=== PATIENT | male | born 1945 | race Caucasian/White ===

== ENCOUNTER → 2018-08-16 08:10 | Outpatient (CLI) | payer MEDICARE, SELFPAY ==
[2018-08-16 13:34] LABS: Anion Gap 12.5 mEq/L (5-15); Blood Urea Nitrogen 18 mg/dL (7-18); Calcium 8.7 mg/dL (8.5-10.1); Carbon Dioxide 28 mmol/L (21.0-32.0); Chloride 104 mmol/L (98-107); Creatinine,Serum 1.12 mg/dL (0.70-1.30); Estimated Glomerular Filt Rate 65 ml/min (>60); GFR (African American) 78 ML/MIN (>60); Glucose 98 mg/dL (74-106); Potassium 4.5 mmoL/L (3.5-5.1); Sodium 140 mmol/L (136-145)
== END ==
PROVIDERS: PCP Nurse Practitioner Family; Visit Provider Nurse Practitioner Family
DX: E87.5 Hyperkalemia (principal)
CPT/HCPCS: 36415; 80048

== ENCOUNTER → 2019-12-03 07:58 | Outpatient (CLI) | payer MEDICARE, OTHER, SELFPAY ==
[2019-12-03 14:20] LABS: Alanine Aminotransferase 21 U/L (12-78); Albumin Level 4.1 g/dl (3.5-5.0); Albumin/Globulin Ratio 1.4 (1.1-1.8); Alkaline Phosphatase 77 U/L (38-126); Anion Gap 7.5 mEq/L (5-15); Aspartate Amino Transferase 31 U/L (17-59); Bilirubin,Total 0.5 mg/dl (0.2-1.3); Blood Urea Nitrogen 18 mg/dl (9-20); Calcium 9.5 mg/dl (8.4-10.2); Carbon Dioxide 31 mmol/L (22.0-30.0); Chloride 104 mmol/L (98-107); Chol/HDL Ratio 2.1 (1-3.5); Cholesterol 133 mg/dl (140-200); Estimated Glomerular Filt Rate 73 ml/min (>60); GFR (African American) 89 ML/MIN (>60); Glucose 96 mg/dl (74-100); HDL Cholesterol 64 mg/dl (40-60); Potassium 4.5 mmoL/L (3.5-5.1); Sodium 138 mmol/L (136-145); Total Protein,Serum 7.1 g/dl (6.3-8.2); Triglycerides 74 mg/dl (30-150); VLDL Cholesterol 15 mg/dL (0-40)
[2019-12-03 14:30] LABS: Direct LDL Cholesterol 67.24 mg/dL (100-129)
[2019-12-03 14:50] LABS: Prostate Specific Ag Screen 4.5 ng/ml (0.0-4.0)
== END ==
PROVIDERS: Visit Provider Nurse Practitioner Family
DX: Z00.00 Encounter for general adult medical examination without abnormal findings (principal); E78.2 Mixed hyperlipidemia; I10 Essential (primary) hypertension; N40.1 Benign prostatic hyperplasia with lower urinary tract symptoms; Z12.5 Encounter for screening for malignant neoplasm of prostate
CPT/HCPCS: 36415; 80053; 80061; G0103

== ENCOUNTER → 2020-01-17 10:02 | Outpatient (CLI) | payer MEDICARE, OTHER, SELFPAY ==
--- NOTE | 2020-01-17 10:09 | CA_ITS ---
APPROVED REPORT Right Upper Extremity Venous Study for DVT.. Distribution Operation Supervisor: DEANDRE SahniT Indications Upper Extremity Pain: Right Upper Extremity Edema: Right Pain rt elbow area x 1 week,nki Vein Imaging IJV (R): Normal phasic flow is seen. Normal flow, augmentation and compression is seen. No evidence of Deep Vein Thrombosis. No abnormalities are demonstrated. SCV (R): Normal phasic flow is seen. Normal flow, augmentation and compression is seen. No evidence of Deep Vein Thrombosis. No abnormalities are demonstrated. Axillary (R): Normal phasic flow is seen. Normal flow, augmentation and compression is seen. No evidence of Deep Vein Thrombosis. No abnormalities are demonstrated. Brachial (R): Normal phasic flow is seen. Normal flow, augmentation and compression is seen. No evidence of Deep Vein Thrombosis. No abnormalities are demonstrated. Basilic (R): Compressible Cephalic (R): Compressible Radial (R): Compressible Ulnar (R): Compressible Conclusion Study suggests no evidence of DVT of the right upper extremity. Study suggests no evidence of SVT of the right upper extremity. Critical Notification Physician Notified Date: 01/17/2020 Time: 10:40 Physician Name: Tyrel Electronically signed by : Vj Leong MD 01/17/2020 16:44:21
== END ==
PROVIDERS: PCP Nurse Practitioner Family; Visit Provider Nurse Practitioner Family
DX: M79.601 Pain in right arm (principal); M79.89 Other specified soft tissue disorders
CPT/HCPCS: 93971

== ENCOUNTER → 2020-10-19 07:27 | Outpatient (CLI) | payer MEDICARE, OTHER, SELFPAY ==
[2020-10-19 14:31] LABS: Prostate Specific Ag, Diagnost 3.14 ng/ml (0.0-4.0)
[2020-10-19 15:35] LABS: Alanine Aminotransferase 19 U/L (12-78); Albumin Level 3.8 g/dl (3.5-5.0); Albumin/Globulin Ratio 1.2 (1.1-1.8); Alkaline Phosphatase 85 U/L (38-126); Anion Gap 9.8 mEq/L (5-15); Aspartate Amino Transferase 28 U/L (17-59); Bilirubin,Total 0.4 mg/dl (0.2-1.3); Blood Urea Nitrogen 24 mg/dl (9-20); Calcium 9.2 mg/dl (8.4-10.2); Carbon Dioxide 27 mmol/L (22.0-30.0); Chloride 107 mmol/L (98-107); Chol/HDL Ratio 2.6 (1-3.5); Cholesterol 145 mg/dl (140-200); Estimated Glomerular Filt Rate 65 ml/min (>60); GFR (African American) 79 ML/MIN (>60); Globulin 3.1 g/dL (1.3-3.2); Glucose 105 mg/dl (74-100); HDL Cholesterol 55 mg/dl (40-60); Potassium 4.8 mmoL/L (3.5-5.1); Sodium 139 mmol/L (136-145); Total Protein,Serum 6.9 g/dl (6.3-8.2); Triglycerides 52 mg/dl (30-150); VLDL Cholesterol 10 mg/dL (0-40)
[2020-10-19 15:46] LABS: Direct LDL Cholesterol 69.83 mg/dL (100-129)
== END ==
PROVIDERS: Visit Provider Nurse Practitioner Family
DX: Z00.00 Encounter for general adult medical examination without abnormal findings (principal); E78.2 Mixed hyperlipidemia; N40.1 Benign prostatic hyperplasia with lower urinary tract symptoms
CPT/HCPCS: 36415; 80053; 80061; 84153

== ENCOUNTER → 2021-06-25 18:25 | Outpatient (CLI) | payer MEDICARE, OTHER, SELFPAY ==
[2021-06-25 20:09] LABS: Alanine Aminotransferase 22 U/L (12-78); Albumin Level 3.8 g/dl (3.5-5.0); Albumin/Globulin Ratio 1.3 (1.1-1.8); Alkaline Phosphatase 74 U/L (38-126); Anion Gap 6.5 mEq/L (5-15); Aspartate Amino Transferase 31 U/L (17-59); Bilirubin,Total 0.6 mg/dl (0.2-1.3); Blood Urea Nitrogen 16 mg/dl (9-20); Carbon Dioxide 31 mmol/L (22.0-30.0); Chloride 106 mmol/L (98-107); Cholesterol 138 mg/dl (140-200); Estimated Glomerular Filt Rate 82 ml/min (>60); GFR (African American) 100 ML/MIN (>60); Globulin 2.9 g/dL (1.3-3.2); Glucose 94 mg/dl (74-100); Potassium 4.5 mmoL/L (3.5-5.1); Sodium 139 mmol/L (136-145); Total Protein,Serum 6.7 g/dl (6.3-8.2); Triglycerides 46 mg/dl (30-150); VLDL Cholesterol 9 mg/dL (0-40)
[2021-06-25 20:20] LABS: Direct LDL Cholesterol 70.26 mg/dL (100-129)
[2021-06-25 20:42] LABS: Prostate Specific Ag Screen 3.7 ng/ml (0.0-4.0)
[2021-06-25 22:42] LABS: Chol/HDL Ratio 2.6 (1-3.5); HDL Cholesterol 53 mg/dl (40-60)
== END ==
PROVIDERS: Visit Provider Nurse Practitioner Family
DX: Z00.00 Encounter for general adult medical examination without abnormal findings (principal); I10 Essential (primary) hypertension; E78.2 Mixed hyperlipidemia; N40.1 Benign prostatic hyperplasia with lower urinary tract symptoms; Z12.5 Encounter for screening for malignant neoplasm of prostate
CPT/HCPCS: 80053; 80061; G0103

== ENCOUNTER → 2022-12-08 15:15 | Outpatient (CLI) | payer MEDICARE, SELFPAY ==
--- NOTE | 2022-12-08 15:19 | CT_ITS ---
FINAL REPORT TECHNIQUE: Axial CT images of the chest were obtained without contrast. Low-dose protocol was utilized. This study was performed with techniques to keep radiation doses as low as reasonably achievable (ALARA). Individualized dose reduction techniques using automated exposure control or adjustment of mA and/or kV according to the patient's size were employed. CLINICAL HISTORY: FORMER SMOKER, QUIT 16 YRS AGO, SMOKED 1 PK PER DAY X 40 YRS COMPARISON: none FINDINGS: CT CHEST WITHOUT, LOW DOSE SCREENING CT Di Vol: mGy DLP: mGy*cm There is no axillary, mediastinal, or hilar adenopathy. The heart size is normal. There are moderate to severe coronary artery calcifications. There is no pleural or pericardial effusion. The lung windows show a 4 mm nodule of the right major fissure on image 52. There is severe emphysema and mild scarring. Limited images of the upper abdomen demonstrate left adrenal nodule, likely adenoma. IMPRESSION: 4 mm right major fissure nodule. LR Category 2: 12 month follow-up low-dose chest CT is recommended. Reviewed, Interpreted and Dictated by Thang Simmons III, MD Transcribed by Mónica Noel Authenticated and . [facility]
== END ==
PROVIDERS: PCP Internal Medicine Adolescent Medicine; Visit Provider Nurse Practitioner Family
DX: Z87.891 Personal history of nicotine dependence (principal); Z12.2 Encounter for screening for malignant neoplasm of respiratory organs
CPT/HCPCS: 71271

== ENCOUNTER 2023-08-01 08:15 | Day surgery (SDC) | payer MEDICARE, SELFPAY ==
[2023-08-01 08:37] VITALS: BP 147/67; PULSE 94; RESP 18; TEMP 36.2; O2SAT 97; BMI 20.5
--- NOTE | 2023-08-01 08:43 | HMH.SCOPE ---
Procedure: Date: 08/01/23 Patient Date of :: 1945 Procedure Performed:: Colonoscopy with polypectomy Indications:: History of colon polyps Note: Colonoscopy in September 2019 was somewhat complicated by fairly severe spasticity/poor relaxation. An enlarged prostate was noted. Adenomatous polyps of the transverse colon and at 40 cm were excised. Performing Provider:: Brandon Landry MD Referring Provider:: . Sedation:: Monitored anesthesia care Procedure:: After informed consent was obtained the patient was taken to the endoscopy suite. Sedation ensued after the patient was transferred to the left lateral decubitus position. Pulse, blood pressure, and oxygen saturation were monitored throughout the procedure. Digital rectal exam revealed no significant abnormality. The colonoscope was placed in position. The entire colon was evaluated. The colonoscope was carefully removed and the patient was transferred to recovery in stable condition. Please see findings and specimens below for detail. Findings:: Bowel preparation moderate to poor Enlarged prostate with known isolated mass lesion (unchanged) Posterior hemorrhoidal tag Fairly profound spasticity/lack of relaxation Right colon tattoo region appeared normal Polyps (see specimens) Specimens:: Cecal polyp (cold biopsy forceps) Polyp at 20 cm (cold snare) Recommendations:: Timing of repeat colonoscopy is pending pathology will likely be around 2-3 years secondary to history of significant polyps and spasticity/lack of relaxation. Consider barium enema secondary to profound spasticity/lack of relaxation. Complications:: No immediate Estimated blood obtained (mL): 1 Comment:: The patient states that he has a chronic history of benign prostatic hypertrophy and continues evaluation by his primary care provider. Colonoscopy Component Colonoscopy Component Was a colonoscopy performed during today's procedure?: Yes Recommended follow up colonoscopy of at least 10 years?: No If no, follow up colonoscopy recommended in ___ years?: (See above) Reason for not recommending >/= 10 yr follow-up interval?: (See above)
--- NOTE | 2023-08-01 08:49 | EXP.ANES.CKL ---
[facility] Disclaimer: The information contained in this section may have been updated after the patient was seen, as this information can be updated by other users. Medical History BPH (benign prostatic hyperplasia) Colon cancer COPD (chronic obstructive pulmonary disease) Hyperlipidemia Surgical History History of bowel resection Hx of inguinal hernia repair Family History Other No significant family history Social History Smoking Status: Never smoker alcohol intake: never substance use type: denies use current occupational status: retired Travel in the last 8 weeks: None household members: none housing: house caffeine: No [facility] Anesthesia Checklist Patient Identification Patient Identification: Arm Band Structural Data Admitted From: Home Planned Operative Procedure/s: colonoscopy Consent for Planned Operative Procedure(s) Verified: Yes Verified Documents: Surgical Consent and History and Physical NPO Status Verified Time NPO: 00:00 Additional verifications Anesthesia Reactions: No Airway Assessment Mallampati Score:: Class II TMJ Mobility Assessed: Yes Dentition: Good Dentition (upper dentures removed) Neurological Assessment Level of Consciousness: Awake and Alert Anesthesia Plan Anesthesia Risk discussed: Yes Anesthesia Plan: Verified ASA Class: II Anesthesia Type: MAC
[2023-08-01 08:53] VITALS: O2SAT 97
[2023-08-01 09:22] VITALS: BP 93/50; PULSE 71; RESP 14; TEMP 36.3; O2SAT 96
[2023-08-01 09:32] VITALS: BP 89/51; PULSE 66; RESP 14; O2SAT 97
[2023-08-01 09:42] VITALS: BP 94/51; PULSE 63; RESP 16; O2SAT 97
[2023-08-01 09:52] VITALS: BP 116/58; PULSE 79; RESP 16; TEMP 36.6; O2SAT 98
== END 2023-08-01 09:52 | disposition home or self-care (01) ==
PROVIDERS: PCP Internal Medicine Adolescent Medicine; Visit Provider Surgery
PROC: 0DJD8ZZ Inspection of Lower Intestinal Tract, Via Natural or Artificial Opening Endoscopic (ICD-10-PCS; CPT 45380; principal; 2023-08-01 09:30)
DX: Z12.11 Encounter for screening for malignant neoplasm of colon (principal); Z86.010 Personal history of colon polyps; N40.0 Benign prostatic hyperplasia without lower urinary tract symptoms; D12.0 Benign neoplasm of cecum; D12.5 Benign neoplasm of sigmoid colon
CPT/HCPCS: 45380; 45385; 88305

== ENCOUNTER 2023-11-13 07:40 | Outpatient (CLI) | payer MEDICARE, SELFPAY ==
--- NOTE | 2023-11-13 07:41 | FL_ITS ---
FINAL REPORT CLINICAL HISTORY: colon spasm - unsuccessful colonoscopy FINDINGS: BARIUM ENEMA HISTORY: Incomplete colonoscopy. Spasm of the colon. PROCEDURE: Single-contrast barium was introduced by gravity drip. Spot and overhead films were obtained. Number of images: 29 Fluoro time: 3 minutes 11 seconds Radiation exposure in Reference air Kerma: 131.36 mGy. FINDINGS: Supervisor Production Department film is unremarkable. Retained stool limits mucosal detail. The colon is markedly redundant. Contrast is seen to level of the cecum. The cecum is poorly visualized secondary to air lock. Taking this into consideration, no obstructing lesion is identified. Minimal diverticular changes are seen in the transverse colon. The patient has an incompetent ileocecal valve. IMPRESSION: Redundant colon. Minimal diverticular changes. Films reviewed , interpreted and dictated by Dr. Simmons. Transcribed by Marciano Roe PA-C. Reviewed, Interpreted and Dictated by Thang Simmons III, MD Transcribed by TC Mata Authenticated and [facility]
[2023-11-13] MEDS: BARIUM SULFATE(E-Z-AC);1900ML BOTTLE 3800 ML PO (08:51)
== END 2023-11-13 23:59 ==
LOC: RAD 07:41
PROVIDERS: PCP Internal Medicine Adolescent Medicine; Visit Provider Surgery
DX: N40.0 Benign prostatic hyperplasia without lower urinary tract symptoms (principal)
CPT/HCPCS: 74270

== ENCOUNTER 2023-12-12 07:08 | Outpatient (CLI) | payer MEDICARE, SELFPAY ==
--- NOTE | 2023-12-12 07:13 | CT_ITS ---
FINAL REPORT TECHNIQUE: Axial images were obtained from the lung apex to the mid abdomen by computed tomography. This study was performed with techniques to keep radiation doses as low as reasonably achievable (ALARA). Individualized dose reduction techniques using automated exposure control or adjustment of mA and/or kV according to the patient's size were employed. CLINICAL HISTORY: H/O TOBACCO USE former smoker. quit 17 years ago. smoked 1 ppd x 35 years. COMPARISON: 12/08/2022 FINDINGS: CHEST CT LOW DOSE CTDI vol (mGy): 2.90 DLP (mGy-cm): 111.64 There is no axillary adenopathy. There is no hilar or mediastinal adenopathy. The heart is normal in size. There is no pericardial or pleural effusion. Worsening there is a stable 4 mm nodule along the lateral major fissure well seen on image 50 of series 4. There are few scattered 2 mm or less nodules in the periphery of the right upper lobe best seen on MIP imaging, stable. There are few 3 mm or less nodules in the periphery of the left upper lobe, stable best seen on MIP imaging. Limited images of the upper abdomen are unremarkable. IMPRESSION: Stable pulmonary nodules as above. Lung RADS category 2. Recommend 12 month follow-up low-dose chest CT. Reviewed, Interpreted and Dictated by Ronit Maxwell MD Transcribed by Pina Kwon Authenticated and [facility]
== END 2023-12-12 23:59 | disposition home or self-care (01) ==
LOC: RAD 07:09
PROVIDERS: PCP Internal Medicine Adolescent Medicine; Visit Provider Nurse Practitioner Family
DX: Z87.891 Personal history of nicotine dependence (principal); Z12.2 Encounter for screening for malignant neoplasm of respiratory organs
CPT/HCPCS: 71271

== ENCOUNTER 2025-02-26 09:30 | Outpatient (CLI) | payer MEDICARE, SELFPAY ==
--- OUTSIDE RECORDS SUMMARY | 2024-11-16 17:30 | XMS_ITS ---
Author Organization [facility] Address [address] [facility] [address] [place], [place] [address] Care Team Providers Care Copyright Manager Name Role Phone Yue Sy Primary Care Provider YUE Sy APRN Unavailable Unavailable Migration, Provider Unavailable Unavailable REASON FOR VISIT [facility] Encounter Medications Medication SIG (Take, Route, [...] review and pick correct strength[facility]ulatio n from [facility]. If intended option is not shown, discontinue and re-order from Quick Search* Active Allergy Relief (Cetirizine) 10 MG 1 tab(s) orally once a day; Duration: 90 days Active Flomax 0.4 MG 2 CAP(S) ORALLY ONCE A DAY AT BEDTIME; Duration: 90 DAYS *Please review and pick correct strength-formulatio n from Medispan options. If intended option is not shown, discontinue and re-order from Quick Search* Active Encounters Encounter Location Date Provider Diagnosis [facility] [address] [place], [place] [address] 11/16/2024 Provider Migration Plan Of Treatment No Information Progress Notes * Adam HANNA HDOB: 7 (79 yo M)Acc No.[id number]:11/16/2024 Patient: Adam GLEZ Provider: Ladi Chen :1945 A ge:79 Y S ex:Male Date:11/16/2024 Address:[address] [place], [place] [address], [id number] Pcp:Yue Sy Subjective: * Chief Complaints: * [...] Electronic signature of Prov ider Migration on 02/27/2025 at 10:07 AM EDT Sign off status: Pending * Provider: Ladi allen Migration Date: 11/16/2024 Generated for Lukas agarwal/Roddy/Gordonsmmindy on: 02/27/2025 10:07 AM EDT
--- OUTSIDE RECORDS SUMMARY | 2024-11-22 06:00 | XMS_ITS ---
Author Organization [facility] Address [address] [place] [address] Care Team Providers Care Snailer Name Role Phone Yue Sy Primary Care Provider YUE Sy APRN Unavailable Unavailable REASON FOR VISIT 6 month f/u Encounters Encounter Location Date Provider Diagnosis [place] [address] 11/22/2024 Yue Sy Plan Of Treatment No Information Progress Notes * Adam HANNA HDOB: 7 (79 yo M)Acc No.[id number]:11/22/2024 Progress Notes Patient: Adam GLEZ Provider: Barbara Sy APRN :1945 A ge:79 Y S ex:Male Date:11/22/2024 Address:[facility] [address] [id number] Subjective: * Chief Complaints: * 1 . 6 month f/u. * Medical History: Objective: * Vitals: Assessment: Plan: * Treatment: * * Electronic signature of Joseluis Sy APRN on 02/27/2025 at 10:07 AM EDT Sign off status: Pending * Provider: Barbara Sy APRN Date: 11/22/2024 Generated for Printi ng/Faxing/eTransmitting on: 02/27/2025 10:07 AM EDT
--- OUTSIDE RECORDS SUMMARY | 2025-02-27 10:07 | XMS_ITS | Patient Health Record ---
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 Role Phone Yue Sy Primary Care Provider YUE Sy APRN Unavailable Unavailable Migration, Provider Unavailable Unavailable Allergies No Known Allergies Results Component Value Reference Range Notes LIPID PANEL, STANDARD (7600) Reviewed date:06/03/2024 04:03:41 PM Interpretation: Performing Lab:CB, [facility] [id number] [place] [id number] [place] Pro Notes/Report: NON-FASTING; NON-FASTING; NON-FASTING; NON-FASTING FASTING:YES FASTING: YES CHOLESTEROL, TOTAL 143 <200 mg/dL HDL CHOLESTEROL 60 > OR = 40 mg/dL TRIGLYCERIDES 82 <150 mg/dL LDL-CHOLESTEROL 67 Reference range: <100 Desirable range <100 mg/dL for primary prevention; <70 mg/dL for patients with CHD or diabetic patients with > or = 2 CHD risk factors. LDL-C is now calculated using the Kavon calculation, which is a validated novel method providing better accuracy than the Friedewald equation in the estimation of LDL-C. Dashawn SS et al. IRENE. 2013;310(19): 8103-1985 (http://education.[employer] [place]/faq/QDG019) CHOL/HDLC RATIO 2.4 <5.0 (calc) NON HDL CHOLESTEROL 83 <130 mg/dL (calc) For patients with diabetes plus 1 major ASCVD risk factor, treating to a non-HDL-C goal of <100 mg/dL (LDL-C of <70 mg/dL) is considered a therapeutic option. COMPREHENSIVE METABOLIC PANE L (64086) Reviewed date:06/03/2024 04:03:41 PM Interpretation: Performing Lab:HEATHER [id number] [place] [id number] [place] Pro Notes/Report: NON-FASTING; NON-FASTING; NON-FASTING; NON-FASTING FASTING:YES FASTING: YES GLUCOSE 101 65-99 mg/dL Fasting reference interval For someone without known diabetes, a glucose value between 100 and 125 mg/dL is consistent with prediabetes and should be confirmed with a follow-up test. UREA NITROGEN (BUN) 18 7-25 mg/dL CREATININE 1.23 0.70-1.28 mg/dL EGFR 60 > OR = 60 mL/min/1.73m2 BUN/CREATININE RATIO SEE NOTE: 6-22 (calc) Not Reported: BUN and Creatinine are within reference range. SODIUM 138 135-146 mmol/L POTASSIUM 4.6 3.5-5.3 mmol/L CHLORIDE 105 98-110 mmol/L CARBON DIOXIDE 29 20-32 mmol/L CALCIUM 9.5 8.6-10.3 mg/dL PROTEIN, TOTAL 7.4 6.1-8.1 g/dL ALBUMIN 4.1 3.6-5.1 g/dL GLOBULIN 3.3 1.9-3.7 g/dL (calc) ALBUMIN/GLOBULIN RATIO 1.2 1.0-2.5 (calc) BILIRUBIN, TOTAL 0.6 0.2-1.2 mg/dL ALKALINE PHOSPHATASE 85 35-144 U/L AST 21 10-35 U/L ALT 15 9-46 U/L CBC (INCLUDES DIFF/PLT) (639 9) Reviewed date:06/03/2024 04:03:41 PM Interpretation: Performing Lab:HEATHER [facility] [id number] [place] [id number] [place] Pro Notes/Report: NON-FASTING; NON-FASTING; NON-FASTING; NON-FASTING FASTING:YES FASTING: YES WHITE BLOOD CELL COUNT 4.8 3.8-10.8 Thousand/ uL RED BLOOD CELL COUNT 4.23 4.20-5.80 Million/uL HEMOGLOBIN 13.2 13.2-17.1 g/dL HEMATOCRIT 41.3 38.5-50.0 % MCV 97.6 80.0-100.0 fL MCH 31.2 27.0-33.0 pg MCHC 32.0 32.0-36.0 g/dL For adults, a slight decrease in the calculated MCHC value (in the range of 30 to 32 g/dL) is most likely not clinically significant; however, it should be interpreted with caution in correlation with other red cell parameters and the patient's clinical condition. RDW 12.1 11.0-15.0 % PLATELET COUNT 239 140-400 Thousand/uL MPV 10.0 7.5-12.5 fL ABSOLUTE NEUTROPHILS 2750 6166-8829 cells/uL ABSOLUTE LYMPHOCYTES 4336 685-9400 cells/uL ABSOLUTE MONOCYTES 413 200-950 cells/uL ABSOLUTE EOSINOPHILS 274 15-500 cells/uL ABSOLUTE BASOPHILS 19 0-200 cells/uL NEUTROPHILS 57.3 LYMPHOCYTES 28.0 MONOCYTES 8.6 EOSINOPHILS 5.7 BASOPHILS 0.4 PSA, TOTAL (5363) Reviewed date:06/03/2024 04:03:41 PM Interpretation: Performing Lab:HEATHER, [facility] [id number] [facility] [id number] [place] Pro Notes/Report: NON-FASTING; NON-FASTING; NON-FASTING; NON-FASTING FASTING:YES FASTING: YES PSA, TOTAL 5.12 < OR = 4.00 ng/mL The total PSA value from this assay system is standardized against the WHO standard. The test result will be approximately 20% lower when compared to the equimolar-standardized total PSA (Kenisha Larose). Comparison of serial PSA results should be interpreted with this fact in mind. This test was performed using the Siemens chemiluminescent method. Values obtained from different assay methods cannot be used interchangeably. PSA levels, regardless of value, should not be interpreted as absolute evidence of the presence or absence of disease. Reason For Referral Reason PSA is a little high er Referral Organization [facility] XAVIER RIVERA Referring Provider First Name Yue Referring Provider Last Name Kerrie Referring Provider [facility] Notes Dina Morel 04:05:22 PM > faxed and they will call pt with appt Referral Priority Routine Reason medical records for new PCP Referral Organization [facility] XAVIER RIVERA Referring Provider First Name Yue Referring Provider Last Name Kerrie Referring Provider Speciality Family [facility] ctice Referral Priority Routine Medications Medication SIG (Take, Route, Frequency, Duration) Notes Start Date End Date Status Simvastatin 40 MG 1 tab(s) orally once a day at bedtime; Duration: 90 days Active Symbicort 160-4.5 MCG/ACT 2 puff(s) inhaled 2 times a day; Duration: 30 days 02/23/2024 Active Multivitamin MULTIPLE VITAMINS 1 CAP(S) ORALLY ONCE A DAY; Duration: 90 DAY(S) *Please review and pick correct strength-formulatio n from [employer] options. If intended option is not shown, discontinue and re-order from Quick Search* Active Allergy Relief (Cetirizine) 10 MG 1 tab(s) orally once a day; Duration: 90 days Active Flomax 0.4 MG 2 CAP(S) ORALLY ONCE A DAY AT BEDTIME; Duration: 90 DAYS *Please review and pick correct strength-formulatio n from [employer] options. If intended option is not shown, discontinue and re-order from Quick Search* Active Immunizations Vaccine Route Administration Date Status Comme nts Prevnar PCV-13 (Pneumococcal conjugate 13) IM Intramuscular 10/27/2017 Administered Pneumovax 23 IM Intramuscular 08/22/2016 Administered Influenza (Fluzone)--Medicare only IM Intramuscular 07/27/2016 Administered Influenza (Fluzone)--Medicare only IM Intramuscular 07/14/2017 Administered Fluzone High Dose IM Intramuscular 08/10/2018 Administered Fluzone High Dose IM Intramuscular 05/16/2019 Administered Fluzone High Dose IM Intramuscular 07/20/2020 Administered Fluzone High Dose IM Intramuscular 06/25/2021 Administered Fluzone High Dose IM Intramuscular 05/22/2023 Administered Fluzone High Dose IM Intramuscular 05/31/2024 Administered Covid Moderna Unknown 10/08/2020 Administered Covid Moderna Unknown 11/05/2020 Administered Problems Problem Type SNOMED Code ICD Code Onset Dates Problem Status W/U Status Risk Notes Problem Mixed hyperlipidemia (737828210) Mixed hyperlipidemia (E78.2) Active confirmed Problem Essential hypertension (59244368) Essential (primary) hypertension (I10) Active confirmed Problem Lower urinary tract symptoms due to benign prostatic hypertrophy (18324270266496) Enlarged prostate with lower urinary tract symptoms (N40.1) Active confirmed Problem Seasonal allergy (503062267) Seasonal allergies (J30.2) Active confirmed Problem Acute exacerbation of chronic obstructive airways disease (169286013) COPD exacerbation (J44.1) Active confirmed Problem COPD - Chronic obstructive pulmonary disease (37045446) Chronic obstructive pulmonary disease, unspecified COPD type (J44.9) Active confirmed Problem History of malignant neoplasm of colon (039669590) History of colon cancer (Z85.038) Active confirmed Problem Tobacco use (875710362) Tobacco use disorder (F17.200) Active confirmed Problem Lower urinary tract symptoms due to benign prostatic hypertrophy (51674739861135) Benign prostatic hyperplasia with lower urinary tract symptoms, symptom details unspecified (N40.1) Active confirmed Problem Anemia (751742194) Mild anemia (D64.9) Active confirmed Vital Signs Heart Rate 78 /min 05/31/2024 Temperature 97.7 degrees Fahrenheit 05/31/2024 Blood pressure diastolic 72 mm Hg 05/31/2024 Height 65.75 in 05/31/2024 Blood pressure systolic 112 mm Hg 05/31/2024 Weight 126.4 lbs 05/31/2024 BMI 20.55 kg/m2 05/31/2024 Encounters Encounter Location Date Provider Diagnosis [facility] [address] [place] [address] 11/16/2024 Provider Migration [address] [address] 05/31/2024 Yue Kerrie Benign prostatic hyperplasia with lower urinary tract symptoms, symptom details unspecified N40.1 ; Chronic obstructive pulmonary disease, unspecified COPD type J44.9 ; Mixed hyperlipidemia E78.2 ; Seasonal allergies J30.2 ; History of colon cancer Z85.038 ; Immunization(s) administered Z23 ; Mild anemia D64.9 ; History of tobacco use Z87.891 ; Nocturia R35.1 and BMI 20.0-20.9, adult Z68.[address] [address] 05/22/2024 Yue McNees Mixed hyperlipidemia E78.2 and Benign prostatic hyperplasia with lower urinary tract symptoms, symptom details unspecified N40.1 Assessments Encounter Date Diagnosis (ICD Code) Assessment Notes Treatment Notes Treatment Clinical Notes Section Notes 05/22/2024 Mixed hyperlipidemia (ICD-10 - E78.2) 05/31/2024 Chronic obstructive pulmonary disease, unspecified COPD type (ICD-10 - J44.9) Well controlled on Breo. No acute resp symptoms 05/31/2024 Benign prostatic hyperplasia with lower urinary tract symptoms, symptom details unspecified (ICD-10 - N40.1) Intermittent symptoms on Flomax. Will recheck PSA today 05/22/2024 Benign prostatic hyperplasia with lower urinary tract symptoms, symptom details unspecified (ICD-10 - N40.1) 05/31/2024 Mixed hyperlipidemia (ICD-10 - E78.2) Tolerating statin well. Will check fasting lipid panel and treat as indicated. 05/31/2024 Seasonal allergies (ICD-10 - J30.2) Well controlled on cetirizine, no changes 05/31/2024 History of colon cancer (ICD-10 - Z85.038) Screening colonoscopy UTD. Keep FU with Dr Landry 05/31/2024 Immunization(s) administered (ICD-10 - Z23) 05/31/2024 Mild anemia (ICD-10 - D64.9) Last CBC was normal, will check CBC today to confirm stability 05/31/2024 History of tobacco use (ICD-10 - Z87.891) CT chest utd and stable 05/31/2024 Nocturia (ICD-10 - R35.1) 05/31/2024 BMI 20.0-20.9, adult (ICD-10 - Z68.20) Weight is down 10 lbs, but similar to weight this time last year. Discussed adding protein to meals, will continue to monitor Plan Of Treatment Pending Test Test Name Order Date C-CBC 08/18/2014 C-CMP 08/18/2014 C-LIPID PANEL 08/18/2014 C-VITAMIN D, 25-HYDROXY 08/18/2014 VENIPUNCT, ROUTINE* 08/24/2015 M-Comprehensive Metabolic Panel 11/21/19 20 M-Lipid Panel 11/21/2019 M-Prostate Specific Antigen Scrn 020 M-Prostate Specific Antigen Scrn 021 M-Prostate Specific Ag Screen 10/16/2020 Insurance Providers Payer Name Payer Address Payer Phone Subscriber Number Group Number Insured Name Patient Relationship to Insured Coverage Start Date Coverage End Date [employer] [address] [address] [place] [address] [phone] [id number] Adam Hanna Self - patient is the insured [employer] [address] [place] [address] [phone] [id number] Adam Hanna Self - patient is the insured Medical (General) History Medical History History ICD Code COPD Hyperlipidemia Colon Cancer - surveillance colonoscopy February 2019 with several tubular adenoma - repeated September 2019 with multiple tubular adenoma BPH w/ hx of UTI Surgical History Surgery Date(Month/Year) colon cancer removed Inguinal hernia repair 2013 microwave treatment to prostate in [facility] oi in 2012 Colonoscopy and EGD 08/2015 Colonoscopy - tubular adenom a, c-scope 09/06- tubular adenoma- repeat in 2-3 years 09/2019 Hospitalization History Reason Date(Month/Year) enlarged prostate
== END 2025-02-26 23:59 | disposition home or self-care (01) ==
LOC: LAB.DROPOF 02-27 10:03
PROVIDERS: PCP Family Medicine; Visit Provider Family Medicine
DX: N40.0 Benign prostatic hyperplasia without lower urinary tract symptoms (principal)
CPT/HCPCS: G0103

== ENCOUNTER 2025-05-12 14:09 | Emergency (ER) | payer MEDICARE, SELFPAY ==
--- OUTSIDE RECORDS SUMMARY | 2024-11-16 17:30 | XMS_ITS ---
Author Organization [facility] Address [address] [facility] [address] [place], [place] [address] Care Team Providers Care Freight Hustler Name Role Phone Yue Sy Primary Care Provider YUE Sy APRN Unavailable Unavailable Migration, Provider Unavailable Unavailable REASON FOR VISIT [facility] Encounter Medications Medication SIG (Take, Route, Frequency, Duration) Notes Start Date End Date Status Simvastatin 40 MG 1 tab(s) orally once a day at bedtime; Duration: 90 days Active Symbicort 160-4.5 MCG/ACT 2 puff(s) inhaled 2 times a day; Duration: 30 days 02/23/2024 Active Multivitamin MULTIPLE VITAMINS 1 CAP(S) ORALLY ONCE A DAY; Duration: 90 DAY(S) *Please review and pick correct strength-formulatio n from [facility] options. If intended option is not shown, discontinue and re-order from Quick Search* Active Allergy Relief (Cetirizine) 10 MG 1 tab(s) orally once a day; Duration: 90 days Active Flomax 0.4 MG 2 CAP(S) ORALLY ONCE A DAY AT BEDTIME; Duration: 90 DAYS *Please review and pick correct strength-formulatio n from [facility] options. If intended option is not shown, discontinue and re-order from Quick Search* Active Encounters Encounter Location Date Provider Diagnosis [facility] [address] [place], [place] [address] 11/16/2024 Provider Migration Plan Of Treatment No Information Progress Notes * Adam HANNA HDOB: 7 (79 yo M)Acc No.[id number]:11/16/2024 Patient: Adam GLEZ Provider: Ladi Chen :1945 A ge:79 Y S ex:Male Date:11/16/2024 Address:[address] [place], [place] [address], [id number] Pcp:Yue Sy Subjective: * Chief Complaints: * 1 . Multum To Medispan Conversion Encounter. * Medical History: * Medications: T aking Multivitamin MULTIPLE VITAMINS CAPSULE 1 CAP(S) ORALLY ONCE A DAY , Notes to Pharmacist: *Please review and pick correct strength-formulation from Medispan options. If intended option is not shown, discontinue and re-order from Quick Search*, Taking Allergy Relief (Cetirizine) 10 MG Tablet 1 tab(s) orally once a day , Taking Simvastatin 40 MG Tablet 1 tab(s) orally once a day at bedtime , Taking Symbicort 160-4.5 MCG/ACT Aerosol 2 puff(s) inhaled 2 times a day , Taking Flomax 0.4 MG CAPSULE 2 CAP(S) ORALLY ONCE A DAY AT BEDTIME , Notes to Pharmacist: *Please review and pick correct strength-formulation from Medispan options. If intended option is not shown, discontinue and re-order from Quick Search* Objective: * Vitals: Assessment: Plan: * Treatment: * * Electronic signature of Prov ider Migration on 05/12/2025 at 02:33 PM EDT Sign off status: Pending * Provider: Ladi allen Migration Date: 0 11/16/2024 Generated for Lukas agarwal/Roddy/Gordonsmitting on: 0 05/12/2025 02:33 PM EDT
--- OUTSIDE RECORDS SUMMARY | 2024-11-22 06:00 | XMS_ITS ---
Author Organization [facility] Address [address] [place] [address] Care Team Providers Care Network Specialist Name Role Phone Yue Sy Primary Care Provider YUE Sy APRN Unavailable Unavailable REASON FOR VISIT 6 month f/u Encounters Encounter Location Date Provider Diagnosis [place] [address] 11/22/2024 Yue Sy Plan Of Treatment No Information Progress Notes * Adam HANNA HDOB: 7 (79 yo M)Acc No.[id number]:11/22/2024 Progress Notes Patient: Adam GLEZ Provider: Barbara Sy APRN :1945 A ge:79 Y S ex:Male Date:11/22/2024 Address:[facility] [address] [id number] Subjective: * Chief Complaints: * 1 . 6 month f/u. * Medical History: Objective: * Vitals: Assessment: Plan: * Treatment: * * Electronic signature of Joseluis Sy APRN on 05/12/2025 at 02:33 PM EDT Sign off status: Pending * Provider: Barbara Sy APRN Date: 11/22/2024 Generated for Printi ng/Faxing/eTransmitting on: 0 05/12/2025 02:33 PM EDT
--- NOTE | 2025-05-12 14:16 | ED_ITS ---
<Statement entered by Ev Lassiter DO - 05/12/25 19:16> I was consulted by the CHET, and we discussed the complexity of problems being addressed. I approved the treatment plan and management plan of this patient's care in the emergency department, thus performing a substantive portion of medical decision making. Ev Lassiter DO Discharge Plan Disposition Patient Disposition: Home, Self-Care Condition: Good Prescriptions Prescriptions: No Action ranitidine HCl 150 mg capsule 150 mg PO QHS fluticasone furoate-vilanterol [Breo Ellipta] 100-25 mcg/dose blister with device 1 inh inhalation DAILY multivitamin Tablet 1 tab PO DAILY All Day Allergy (cetirizine) 10 mg capsule 10 mg PO DAILY PRN (Reason: allergies) budesonide-formoterol [Symbicort] 160-4.5 mcg/actuation HFA aerosol inhaler 2 puff inhalation BID Qty: 10.2 4RF simvastatin 40 mg tablet 40 mg PO QPM 90 Days Qty: 90 0RF tamsulosin 0.4 mg capsule 0.8 mg PO ONCE 90 Days Qty: 180 0RF Referrals Follow up/Referrals: Jiemnez España MD [Primary Care Provider, Internal Medicine] - See instructions Activity Restrictions/Add. Instructions Additional Instructions/Restrictions: Please return to the emergency department with any worsening signs or symptoms. Please keep your scalp laceration dry and clean, please return to the emergency department or your primary care doctor's office to have your paula removed in 7 to 10 days. Please monitor for any bleeding, or any discharge from your wound. Please follow-up with your PCP. Clinical Impressions Clinical Impression: Closed head injury, Laceration of occipital scalp Instructions Patient Instructions: DI for Closed Head Injury, DI for Laceration Repair of the Scalp, DI for Laceration Repair -- Paula Print Language Print Language: Irish Discharge ED Provider: Ev Lassiter General Adult HPI General Chief complaint: Head Injury Stated complaint: AO@12 head injury, bleeding Time Seen by Provider: 05/12/25 14:12 Mode of Arrival: Ambulatory Source of Information: Patient Limitations: No Limitations History of Present Illness HPI narrative: 79-year-old male presents to the emergency department with a closed head injury and parietal occipital scalp hematoma/laceration, patient states he was chopping some trees , when a branch fell and struck him in the head, he denies any LOC, denies any anticoagulant use, denies any presyncopal or syncopal event, denies any lightheadedness or headache, did have quite significant bleeding, attempted to go to his PCPs office who instructed him to come to the emergency department. Currently no bleeding at my time of examination. Patient denies any fever chills chest pain shortness of breath, no nausea no vomiting no abdominal pain no constipation no diarrhea no urinary type symptomatology, rob bravo is a former smoker, former alcohol use, denies any drug use, other past medical history consistent with BPH, hyperlipidemia, COPD, hypertension, data deficient history of colon cancer surgery, as well as hernia surgery. Initial triage vitals notable for tachycardia otherwise unremarkable Please note that above description of symptoms, in this electronic medical record under categorization of recalled from ER triage doctor by RN are reflective of an initial nursing assessment, however, is not reflective of my full history and physical exam that was personally taken and clarified. Co nsequentially, this preceding description of symptoms, which may include the patient's categorized chief complaint in the EMR, do not reflect my personal clinical impression, and the ultimate description of history of present illness and patient stated complaints should be deferred to this section of the note. Unless stated otherwise or congruent with this section of the note, additional signs, symptoms, or incongruence should be interpreted as inaccurate with my clinical impression. Onset (ago): hour(s) Related Data Home Medications ?Medication ?Instructions ?Recorded ?Confirmed ranitidine HCl 150 mg capsule 150 mg PO QHS Reflux/Aci d reflux 12/28/17 02/26/25 cetirizine 10 mg capsule (All Day 10 mg PO DAILY PRN a llergies 06/28/22 02/26/25 Allergy (cetirizine)) fluticasone furoate 100 1 inh inhalation DAILY 06/2802/26/25 mcg-vilanterol 25 mcg/dose inhalation powder (Breo Ellipta) multivitamin 1 tab PO DAILY 06/28/2202/11 Previous Rx's ?Medication ?Instructions ?Recorded budesonide-formoterol HFA 160 2 puff inhalation BID #1 0.2 grams 02/06/25 mcg-4.5 mcg/actuation aerosol inhaler (Symbicort) simvastatin 40 mg tablet 40 mg PO QPM Cholesterol 90 days 02/06/25 #90 tabs tamsulosin 0.4 mg capsule 0.8 mg (2 x 0.4 mg) PO ONCE 02/06/25 prostate 90 days #180 caps Allergies Allergy/AdvReac Type Severity Reaction Status Date / Time No Known Allergies Allergy Verified 02/26/25 09:00 [facility] Disclaimer: The information contained in this section may have been updated after the patient was seen, as this information can be updated by other users. Medical History (Updated 05/12/25 @ 16:21 by TC Echeverria) Elevated PSA Colon cancer BPH (benign prostatic hyperplasia) COPD (chronic obstructive pulmonary disease) Hyperlipidemia Surgical History History of colonoscopy Hx of inguinal hernia repair History of bowel resection Family History Other No significant family history Social History Smoking Status: Never smoker alcohol intake: never substance use type: denies use current occupational status: retired Travel in the last 8 weeks?: None household members: none housing: house caffeine: No Have you lived/traveled outside US in past 30 days?: No Contact w/someone who lives/traveled outside US past 30 days?: No Exposure to someone with infectious disease in past 14 days?: No Do you have a fever (greater than 100.4 F or 38 C)?: No Have you tested positive for COVID-19?: No Exposed to someone with COVID-19 in past 14 days?: No Do you have a sore throat?: No Do you have a cough?: No Do you have any weakness?: No Do you have any diarrhea?: No Are you experiencing any unusual bleeding?: No Do you have any muscle aches/pain?: No Do you have any abdominal pain?: No Are you experiencing loss of taste or smell?: No Other Medical History Have you received the Flu Vaccine for this season: Yes Have you received the Pneumonia Vaccine: Yes ROS Obtained: Yes All systems reviewed & no additional complaints except as documented Physical Exam General General appearance: alert and in no apparent distress Head Head exam: atraumatic, normocephalic and other (Small superficial scalp hematoma and laceration approximately 2 to 3 cm to the posterior occipital/parietal scalp, no active bleeding at this time, dried blood around the wound/area) Eye Eye exam: Present PERRL and EOMI ENT ENT exam: Present mucous membranes moist Neck Neck exam: Present normal inspection Chest Chest inspection: Present normal inspection and symmetric chest wall rise Respiratory Respiratory exam: Present normal lung sounds bilaterally; Absent respiratory distress Cardiovascular Cardiovascular exam: Present regular rate and normal rhythm Abdominal Exam Abdominal exam: Present soft; Absent tenderness Extremities Exam Extremities exam: Present normal inspection Back Exam Back exam: Present normal inspection and full ROM; Absent tenderness, muscle spasm, paraspinal tenderness or vertebral tenderness Neurological Exam Neurological exam: Present alert, oriented X3 and other (GCS 15, extremities to command, no gross sensation deficit, no weakness) Psychiatric Psychiatric exam: Present normal affect Skin Skin exam: Present warm and dry Medical Decision Making Medical Records Medical records reviewed: Yes I reviewed the patient's medical records. Screening: Per USPSTF and CDC recommendations, given the prevalence of disease in our region, it is our hospital?s policy to screen for HIV and viral Hepatitis for all patients aged 18 and over and those with ongoing risk factors. Vu Inquiry Pt receiving controlled substance: No Vu was queried for this patient: No Vital Signs: 05/12/25 14:32 Temperature 98 F Temperature Source Oral Pulse Rate [Left Radial] 105 H Respiratory Rate 16 Blood Pressure [Right Arm] 156/96 H Blood Pressure Mean [Right Arm] 116 Blood Pressure Source [Right Arm] Automatic Cuff Blood Pressure Position [Right Arm] Sitting 02 Sat by Pulse Oximetry 98 Oxygen Delivery Method Room Air Orders (Tests/Meds): ED MEDICATIONS Discontinued Medications Generic Name Dose Route Start Last Admin Trade Name Freq PRN Reason Stop Dose Admin Tetanus/Reduced Diphtheria/Acell Pertussis 0.5 ml 05/12/25 15:29 05/12/25 15:55 Tet/Diphth/Pert-Adult 0.5ml Syringe IM 05/12/25 15:30 0.5 ml .ONCE ONE Administration ORDERS Category Date Time Status CT cervical spine wo con Stat Cat Scan 05/12/25 14:[address] head/brain wo con Stat Cat Scan 05/12/25 14:22 Completed Medical Decision Narrative: 79-year-old male presents emergency department with a closed head injury, differential diagnose include but not limited to, closed head injury, acute SDH, traumatic SAH, skull fracture, superficial scalp hematoma, superficial scalp laceration, postconcussive syndrome among others. I discussed this patient's case with the attending physician Dr. Lassiter Will obtain CT of the cervical spine without contrast CT head without contrast for further evaluation/characterization. After copious irrigation with sterile water of the patient's wound, utilizing Hibiclens scrub, I closed the patient 3 cm scalp laceration utilizing 5 paula, uncomplicated irregular flap, patient tolerated well, hemestasis achieved. 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 Patient is unsure of tetanus prophylaxis, will update tetanus here in the emergency department. Also discussed incidental findings noted on CT head with the mandibular condyle, patient states that he has dentures, and has extensive history of tooth extraction/oral surgeries. Reviewed the patient CT cervical spine without contrast along the corresponding radiologic report, degenerative changes as described, involving multiple levels of cervical spine no acute bony abnormality identified. I discussed all results with the patient at bedside patient is in agreement with the current treatment plan/discharge plan. Recommend strict ED return precautions, wound care with paula was discussed with the patient at the bedside. Patient was understanding. Procedures Laceration Laceration 1: Site: scalp Side (If applicable): right Size (cm): 3 Description: flap and irregular Depth: involves subcutaneous layer Local Anesthetic: other anesthetic Size (cm): other Critical Care Critical Care Time Critical Care Time: No
--- NOTE | 2025-05-12 14:22 | CT_ITS ---
FINAL REPORT TECHNIQUE: Axial CT images were performed through the head. Coronal and sagittal reformatted images were submitted. This study was performed with techniques to keep radiation doses as low as reasonably achievable (ALARA). Individualized dose reduction techniques using automated exposure control or adjustment of mA and/or kV according to the patient's size were employed. CLINICAL HISTORY: Closed head injury a tree branch. right sided posterior head COMPARISON: None FINDINGS: Mild atrophy is noted. The ventricles are normal in size. There is no evidence of hemorrhage. There is no mass or edema identified. There is no abnormal extra-axial fluid seen. It is hypoplastic. There is mild deviation of the nasal septum to the right, and chronic right maxillary sinusitis. 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 There is cortical disruption noted medially, and correlation with oral surgery consult is suggested. IMPRESSION: No acute intracranial process. Chronic right maxillary sinusitis. 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 Reviewed, Interpreted and Dictated by Armin Kellogg MD Transcribed by Lidia Francis Authenticated and [facility]
--- NOTE | 2025-05-12 14:22 | CT_ITS ---
FINAL REPORT TECHNIQUE: Axial images were obtained of the cervical spine by computed tomography. Coronal and sagittal reconstruction process performed. This study was performed with techniques to keep radiation doses as low as reasonably achievable (ALARA). Individualized dose reduction techniques using automated exposure control or adjustment of mA and/or kV according to the patient's size were employed. CLINICAL HISTORY: Closed head injury. right sided posterior head COMPARISON: None FINDINGS: CT CERVICAL SPINE: CT examination of the cervical spine reveals moderate disc space narrowing at the C3-4 and C4-5 levels. There is minimal spondylolisthesis of C5 on C6. Otherwise, alignment is unremarkable. There is minimal spondylolisthesis of C5 on C6. Endplate hypertrophy is present at the C3-4, C4-5, and C6-7 levels. Neural foraminal narrowing is noted as well, most pronounced at the C3-4 level. No acute bony abnormality to suggest fracture or dislocation is identified, and the facets are normally aligned. There is incidental note made of mucoperiosteal thickening with a hypoplastic right maxillary sinus. IMPRESSION: Degenerative change as described above, involving multiple levels of the cervical spine. No acute bony abnormality is identified. Reviewed, Interpreted and Dictated by Armin Kellogg MD Transcribed by Lidia Francis Authenticated and [facility]
[2025-05-12 14:32] VITALS: BP 156/96; PULSE 105; RESP 16; TEMP 36.6; O2SAT 98; BMI 23.0
--- OUTSIDE RECORDS SUMMARY | 2025-05-12 14:34 | XMS_ITS | Patient Health Record ---
Author Organization [facility] Address [address] [facility] [address] [place] [address] Care Team Providers Care Compensation Programs Manager Name Role Phone Yue Sy Primary Care Provider YUE Sy APRN Unavailable Unavailable Migration, Provider Unavailable Unavailable Allergies No Known Allergies Results Component Value Reference Range Notes LIPID PANEL, STANDARD (7600) Reviewed date:06/03/2024 04:03:41 PM Interpretation: Performing Lab:[facility], [facility] [id number], [place] [id number] P[place] Pro Notes/Report: FASTING: YES FASTING:YES NON-FASTING; NON-FASTING; NON-FASTING; NON-FASTING CHOLESTEROL, TOTAL 143 <200 mg/dL HDL CHOLESTEROL [...] LDL-C. Dashawn SS et al. IRENE. 2013;310(19): 2802-6685 (http://education.Cylex/faq/JFJ883) CHOL/HDLC RATIO 2.4 <5.0 (calc) NON HDL CHOLESTEROL 83 <130 mg/dL (calc) For patients with diabetes plus 1 major ASCVD risk factor, treating to a non-HDL-C goal of <100 mg/dL (LDL-C of <70 mg/dL) is considered a therapeutic option. COMPREHENSIVE METABOLIC PANE L (56005) Reviewed date:06/03/2024 04:03:41 PM Interpretation: Performing Lab:[facility] [employer] [email or web address] [email or web address] [place] Pro Notes/Report: NON-FASTING; NON-FASTING; NON-FASTING; NON-FASTING [...] Reviewed date:06/03/2024 04:03:41 PM Interpretation: Performing Lab:[facility] [id number] [email or web address], [place] [email or web address] [place] Pro Notes/Report: FASTING: YES FASTING:YES NON-FASTING; NON-FASTING; NON-FASTING; NON-FASTING WHITE BLOOD CELL COUNT 4.8 3.8-10.8 Thousand/ [...] MPV 10.0 7.5-12.5 fL ABSOLUTE NEUTROPHILS [phone] cells/uL ABSOLUTE LYMPHOCYTES 2090 839-6303 cells/uL ABSOLUTE MONOCYTES 413 200-950 cells/uL ABSOLUTE EOSINOPHILS 274 15-500 cells/uL ABSOLUTE BASOPHILS 19 0-200 cells/uL NEUTROPHILS 57.3 LYMPHOCYTES 28.0 MONOCYTES 8.6 EOSINOPHILS 5.7 BASOPHILS 0.4 PSA, TOTAL (5363) Reviewed date:06/03/2024 04:03:41 PM Interpretation: Performing Lab:[facility], [facility] [id number] [facility], [facility] [id number] [place] Pro Notes/Report: NON-FASTING; NON-FASTING; NON-FASTING; NON-FASTING FASTING:YES FASTING: YES PSA, TOTAL 5.12 < OR = 4.00 ng/mL The total PSA value from this assay system is standardized against the WHO standard. The test result will be approximately 20% lower when compared to the equimolar-standardized total PSA (Kenisha Dunlevy). Comparison of serial PSA results should be interpreted with this fact in mind. This test was performed using the Siemens chemiluminescent method. Values obtained from different assay methods cannot be used interchangeably. PSA levels, regardless of value, should not be interpreted as absolute evidence of the presence or absence of disease. Reason For Referral Reason PSA is a little high er Referral Organization [facility]IVERA Referring Provider First Name Yue Referring Provider Last Name Kerrie Referring Provider [facility] Notes Dina Morel 04:05:22 PM > faxed and they will call pt with appt Referral Priority Routine Reason medical records for new PCP Referral Organization [facility] Referring Provider First Name Yue Referring Provider Last Name Kerrie Referring Provider Speciality Family [facility] ctice Referral Priority Routine Medications [...] review and pick correct strength-formulatio n from YaSabe options. If intended option is not shown, discontinue and re-order from Quick Search* Active Allergy Relief (Cetirizine) 10 MG 1 tab(s) orally once a day; Duration: 90 days Active Flomax 0.4 MG 2 CAP(S) ORALLY ONCE A DAY AT BEDTIME; Duration: 90 DAYS *Please review and pick correct strength-formulatio n from YaSabe options. If intended option is not shown, [...] W/U Status Risk Notes Problem Mixed hyperlipidemia (085275695) Mixed hyperlipidemia (E78.2) Active confirmed Problem Essential hypertension (56218933) Essential (primary) hypertension (I10) Active confirmed Problem Lower urinary tract symptoms due to benign prostatic hypertrophy (47159368790447) Enlarged prostate with lower urinary tract symptoms (N40.1) Active confirmed Problem Seasonal allergy (175884821) Seasonal allergies (J30.2) Active confirmed Problem Acute exacerbation of chronic obstructive airways disease (670025649) COPD exacerbation (J44.1) Active confirmed Problem COPD - Chronic obstructive pulmonary disease (09973542) Chronic obstructive pulmonary disease, unspecified COPD type (J44.9) Active confirmed Problem History of malignant neoplasm of colon (550944156) History of colon cancer (Z85.038) Active confirmed Problem Tobacco use (286702853) Tobacco use disorder (F17.200) Active confirmed Problem Lower urinary tract symptoms due to benign prostatic hypertrophy (52336750095635) Benign prostatic hyperplasia with lower urinary tract symptoms, symptom details unspecified (N40.1) Active confirmed Problem Anemia (204858009) Mild anemia (D64.9) Active confirmed Vital Signs Heart Rate 78 /min 05/31/2024 Temperature 97.7 degrees Fahrenheit 05/31/2024 Blood pressure diastolic 72 mm Hg 05/31/2024 Height 65.75 in 05/31/2024 Blood pressure systolic 112 mm Hg 05/31/2024 Weight 126.4 lbs 05/31/2024 BMI 20.55 kg/m2 05/31/2024 Encounters Encounter Location Date Provider Diagnosis [facility] [address] [facility] [address] [place] [address] 11/16/2024 Provider Migration [address] [address] 05/31/2024 Yue Kerrie Benign prostatic hyperplasia with lower urinary tract symptoms, symptom details unspecified N40.1 ; Chronic obstructive pulmonary disease, unspecified COPD type J44.9 ; Mixed hyperlipidemia E78.2 ; Seasonal allergies J30.2 ; History of colon cancer Z85.038 ; Immunization(s) administered Z23 ; Mild anemia D64.9 ; History of tobacco use Z87.891 ; Nocturia R35.1 and BMI 20.0-20.9, adult Z68.[address] [address] 05/22/2024 Yue McNees Mixed hyperlipidemia E78.2 and [...] End Date [employer] [address] [address] [place] [address] [id number] Adam Hanna Self - patient is the insured [employer] [address] [place] [address] [id number] Adam Hanna Self - patient is the insured Medical (General) History Medical History History ICD Code COPD Hyperlipidemia Colon Cancer - surveillance colonoscopy February 2019 with several tubular adenoma - repeated September 2019 with multiple tubular adenoma BPH w/ hx of UTI Surgical History Surgery Date(Month/Year) colon cancer removed Inguinal hernia repair 2013 microwave treatment to prostate in [facility] oi in 2012 Colonoscopy and EGD 08/2015 Colonoscopy - tubular adenom a, c-scope 09/06- tubular adenoma- repeat in 2-3 years 09/2019 Hospitalization History Reason Date(Month/Year) enlarged prostate
[2025-05-12] MEDS: TET/DIPHTH/PERT-ADULT 0.5ML SYRINGE 0.5 ML IM (15:55)
[2025-05-12 16:32] VITALS: BP 138/76; PULSE 90; RESP 18; TEMP 36.6; O2SAT 99
== END 2025-05-12 16:33 | disposition home or self-care (01) ==
PROVIDERS: Emergency Provider Student in an Organized Health Care Education/Training Program; PCP Family Medicine
DX: S09.90XA Unspecified injury of head, initial encounter (principal); S01.01XA Laceration without foreign body of scalp, initial encounter; W20.8XXA Other cause of strike by thrown, projected or falling object, initial encounter
CPT/HCPCS: 12002; 70450; 72125; 90471; 90715; 99283; 99285